=== PATIENT | female | born 1980 | race Caucasian/White ===

== ENCOUNTER 2016-05-05 20:41 | Emergency (ER) | payer SELFPAY ==
[2016-05-05] MEDS ORDERED: NS 0.9% 1000 ML* 1,000 ML IV ONE (21:17)
[2016-05-05 21:32] LABS: Hematocrit 41 % (35-47); Hemoglobin 13.9 g/dl (12.0-16.0); Mean Corpuscular HGB Conc 34 g/dl (31-36); Mean Corpuscular Hemoglobin 32 pg (27-31); Mean Corpuscular Volume 95 fL (80-97); Mean Platelet Volume 9 um3 (7.4-10.4); Red Blood Count 4.33 10^6/ul (4.0-5.4); Red Cell Distribution Width 13 % (10.5-15); White Blood Count 11.5 10^3/ul (3.5-10.8)
[2016-05-05 21:48] LABS: ALT 31 U/L (7-52); AST 19 U/L (13-39); Albumin 4.5 g/dL (3.2-5.2); Alkaline Phosphatase 68 U/L (34-104); Anion Gap 12 mmol/L (2-11); Blood Urea Nitrogen 10 mg/dL (6-24); CO2 Carbon Dioxide 21 mmol/L (22-32); Calcium 9.3 mg/dL (8.6-10.3); Chloride 104 mmol/L (101-111); EGFR Non-African American 48.2 (>60); Globulin 2.8 g/dL (2-4); Glucose 110 mg/dL (70-100); Sodium 137 mmol/L (133-145); Total Protein 7.3 g/dL (6.4-8.9)
--- NOTE | 2016-05-05 21:58 | ED ---
Kvng Velarde Janilya, scribed for Zac Geiger MD on 05/05/16 at 2122 . Substance Abuse/Use - HPI Summary HPI Summary: A 35 y/o female was brought to [facility] [place] presenting w/ intoxication. Per nurse, pt made a Facebook post with a suicide plan. She stated that she will hang herself. Police found the pt at home intoxicated. Pt states that she drank alcohol, but "it was not enough", and that she took an unknown amount of sleeping pills. She also reports having taken kava-kava. LEVEL 5 CAVEAT: INTOXICATED, ALT MENTAL STATUS - History Of Current Complaint Chief Complaint: EDSubstanceAbuse Stated Complaint: 941 Time Seen by Provider: 05/05/16 21:11 Hx Obtained From: Patient Ingestion History: Type/Name Of Drug - unknown, Amount Ingested - unknown Severity Initially: Moderate Severity Currently: Moderate Aggravating Factor(s): Nothing Alleviating Factor(s): Nothing Associated Signs And Symptoms: Altered Mental Status - Allergies/Home Medications Allergies/Adverse Reactions: Allergies Allergy/AdvReac Type Severity Reaction Status Date / Time No Known Allergies Allergy Verified 05/05/16 22:12 PMH/Surg Hx/FS Hx/Imm Hx Previously Healthy: Yes Infectious Disease History: No Infectious Disease History: Denies: Traveled Outside the [place] in Last 30 Days - Family History Known Family History: Positive: Unknown - FHx unable to obtain due to LEVEL 5 CAVEAT: INTOXICATED, ALT MENTAL ST - Social History Lives: Alone Hx Substance Use: Yes Review of Systems Negative: Fever Psychological: Other - INTOXICATED, ALT MENTAL STATUS All Other Systems Reviewed And Are Negative: Yes Physical Exam Triage Information Reviewed: Yes Vital Signs On Initial Exam: Initial Vitals Temp Pulse Resp BP Pulse Ox 99.0 F 175 20 129/72 99 05/05/16 21:02 05/05/16 21:02 05/05/16 21:02 05/05/16 21:02 05/05/16 21:02 Vital Signs Reviewed: Yes Appearance: Positive: Well-Appearing, No Pain Distress - aob Skin: Positive: Warm Head/Face: Positive: Normal Head/Face Inspection Eyes: Positive: FRANCISCO JAVIER ENT: Positive: Hearing grossly normal Neck: Positive: Supple Respiratory/Lung Sounds: Positive: Clear to Auscultation, Breath Sounds Present Cardiovascular: Positive: Normal Abdomen Description: Positive: Nontender, Soft Musculoskeletal: Positive: Strength/ROM Intact Neurological: Positive: Sensory/Motor Intact Diagnostics - Vital Signs Vital Signs Temp Pulse Resp BP Pulse Ox 05/05/16 21:02 99.0 F 175 20 129/72 99 - Laboratory Lab Results: Lab Results 05/05/16 05/05/16 05/05/16 Range/Units 21:15 21:15 21:15 WBC 11.5 H (3.5-10.8) 10^3/ul RBC 4.33 (4.0-5.4) 10^6/ul Hgb 13.9 (12.0-16.0) g/dl Hct 41 (35-47) % MCV 95 (80-97) fL MCH 32 H (27-31) pg MCHC 34 (31-36) g/dl RDW 13 (10.5-15) % Plt Count 229 (150-450) 10^3/ul MPV 9 (7.4-10.4) um3 Neut % (Auto) 49.8 (38-83) % Lymph % (Auto) 41.9 (25-47) % [place] % (Auto) 5.5 (1-9) % Eos % (Auto) 2.1 (0-6) % Baso % (Auto) 0.7 (0-2) % Absolute Neuts (auto) 5.7 (1.5-7.7) 10^3/ul Absolute Lymphs (auto) 4.8 (1.0-4.8) 10^3/ul Absolute Monos (auto) 0.6 (0-0.8) 10^3/ul Absolute Eos (auto) 0.2 (0-0.6) 10^3/ul Absolute Basos (auto) 0.1 (0-0.2) 10^3/ul Absolute Nucleated RBC 0.01 10^3/ul Nucleated RBC % 0.1 Sodium 137 (133-145) mmol/L Potassium 3.0 L (3.5-5.0) mmol/L Chloride 104 (101-111) mmol/L Carbon Dioxide 21 L (22-32) mmol/L Anion Gap 12 H (2-11) mmol/L BUN 10 (6-24) mg/dL Creatinine 1.25 H (0.51-0.95) mg/dL Est GFR ( Amer) 62.0 (>60) Est GFR (Non-Af Amer) 48.2 (>60) BUN/Creatinine Ratio 8.0 (8-20) Glucose 110 H (70-100) mg/dL Lactic Acid 3.7 H* (0.5-2.0) mmol/L Calcium 9.3 (8.6-10.3) mg/dL Total Bilirubin 0.30 (0.2-1.0) mg/dL AST 19 (13-39) U/L ALT 31 (7-52) U/L Alkaline Phosphatase 68 (34-104) U/L Total Protein 7.3 (6.4-8.9) g/dL Albumin 4.5 (3.2-5.2) g/dL Globulin 2.8 (2-4) g/dL Albumin/Globulin Ratio 1.6 (1-3) Salicylates Pending Acetaminophen Pending Serum Alcohol Pending Result Diagrams: 05/05/16 21:15 05/05/16 21:15 Lab Statement: Any lab studies that have been ordered have been reviewed, and results considered in the medical decision making process. - EKG 210 Cardiac Rate: Tachycardia - 153 bpm EKG Rhythm: Sinus Tachycardia ST Segment: Normal Ectopy: None Re-Evaluation - Re-Evaluation First Eval Change: Improved Course/Dx - Diagnoses Provider Diagnoses: Alcohol intoxication Discharge - Discharge Plan Condition: Improved Disposition: HOME Patient Education Materials: Depression (ED), Abuse of Alcohol (ED), Suicide Prevention for Adults (ED) Referrals: [facility] [Other] (Please consider getting treatment at [facility] for symptoms of depression and alcohol abuse.) [facility] [place] [Other] (Please consider [facility] [place] for alcohol abuse counseling.) No Primary Care Phys,NOPCP [Primary Care Provider] - The documentation as recorded by the Kvng vazquez Janilya accurately reflects the service I personally performed and the decisions made by me, Zac Geiger MD.
[2016-05-05 22:09] LABS: Acetaminophen < 15 mcg/mL; Alcohol 179 mg/dL (<10); Salicylate < 2.50 mg/dL (<30)
[2016-05-05 23:39] LABS: Urine Bacteria Absent (Absent); Urine Bilirubin Negative (Negative); Urine Glucose Negative (Negative); Urine Nitrite Negative (Negative)
[2016-05-06] MEDS ORDERED: NS 0.9% 1000 ML* 1,000 ML IV ONE (00:05)
[2016-05-06] MEDS ORDERED: IVPREMIX ONE (00:10)
[2016-05-06] MEDS ORDERED: KCL 10 MEQ/50 ML ONE (00:10)
[2016-05-06 00:12] LABS: Benzodiazepine Urine Screen None Detected (None Detect)
[2016-05-06] MEDS: KCL 10 MEQ/50 ML IVPREMIX* 10 MEQ/50 ML BAG IV SCH ×3 (00:14→02:22)
[2016-05-06] MEDS ORDERED: Metoprolol Tartrate IV* 1 MG/ML 5 ML VIAL IV ONE (00:31)
[2016-05-06] MEDS ORDERED: Ondansetron INJ* 2 MG/ML VIAL ONE (01:41)
[2016-05-06] MEDS ORDERED: Ondansetron INJ* 2 MG/ML VIAL IV ONE (01:46)
[2016-05-06 06:11] VITALS: BP 109/53
== END 2016-05-06 06:17 | disposition home or self-care (01) ==
LOC: ED 20:41
DX: F10.129 Alcohol abuse with intoxication, unspecified (principal); R41.82 Altered mental status, unspecified
CPT/HCPCS: 36415; 80053; 80307; 80320; 80329; 81003; 81015; 83605; 84702; 85025; 87086; 93005; 96365; 99285; G0480; J2405; J3480; J3490

== ENCOUNTER 2016-08-28 21:49 | Emergency (ER) | payer MEDICAID ==
[2016-08-28] MEDS ORDERED: Ketorolac INJ* 60 MG/2 ML VIAL IM ONE (23:54)
[2016-08-28] MEDS ORDERED: Ketorolac INJ* 30 MG/ML 1 ML VIAL IV PUSH ONE (23:56)
[2016-08-28] MEDS ORDERED: Dexamethasone IV* 4 MG/ML 1 ML (4 MG) IV SLOW PU ONE (23:56)
[2016-08-29 02:58] VITALS: BP 115/94
--- NOTE | 2016-08-29 07:40 | RAD ---
INDICATION: Fall. Head injury. COMPARISON: None TECHNIQUE: Noncontrast axial source images were acquired from the skull base to the vertex. FINDINGS: Ventricles/sulci: The ventricles and cisterns are normal in size and configuration for age. Brain parenchyma: There is no focal parenchymal finding, evidence of intracranial mass, or intracranial mass effect. Intracranial hemorrhage:None. Extra-axial spaces: There are no abnormal extra axial fluid collections or evidence of extra-axial mass. Calvarium: There is no calvarial fracture or other calvarial abnormality. Scalp: There is no evidence of scalp or extracalvarial soft tissue abnormality. Paranasal sinuses/mastoid: The paranasal sinuses and mastoid air cells are clear. Other: There is left for orbital floor fracture. Please refer to separate maxillofacial CT report. IMPRESSION: No acute intracranial findings. Left orbital floor fracture described in separate report.
--- NOTE | 2016-08-29 07:54 | RAD ---
INDICATION: Fall. Neck pain. COMPARISON: None TECHNIQUE: Noncontrast axial source images was performed from the skull base to the thoracic inlet. Coronal and and sagittal reformatted images were generated. FINDINGS: Vertebrae: There is no fracture or acute focal bony lesion. Alignment: The craniocervical junction appears normal. The cervical vertebrae are normally aligned. Central Canal: There is mild posterior spondylitic ridge reformation C5-C6 with uncinate process spurring leading to a mild decrease in AP diameter canal. There is no significant foraminal encroachment. There are no other significant CT abnormalities of the central canal or foramina. MR imaging is a more sensitive method to evaluate the canal and foramina. Intervertebral disc spaces: Minor disc space narrowing C5-C6. The remaining disc spaces are maintained. Brain: The visualized brain appears unremarkable. Soft tissues: The visualized soft tissue elements of the neck are unremarkable. The prevertebral soft tissues appear normal. The lung apices are clear. IMPRESSION: MINOR DEGENERATIVE CHANGES C5-C6. NO ACUTE FINDINGS
--- NOTE | 2016-08-29 08:01 | RAD ---
HISTORY: Fall, possible left orbital fracture COMPARISONS: None TECHNIQUE: Multiple contiguous axial CT scans were obtained of the face without intravenous contrast, with coronal and sagittal multiplanar reformations. FINDINGS: BONES: There is a fracture of the inferior orbital wall with approximately 0.7 cm of inferior displacement. The fracture defect measures approximately 1.1 cm transversely and 1.5 cm in AP dimension. There is partial herniation of the inferior rectus muscle. There is a nondisplaced fracture of the left nasal bone. There is a questionable fracture of the right inferior wall without herniation of fat, though this may simply represent a prominent inferior orbital foramen. Elsewhere, there is no displaced fracture. Mild degenerative changes are noted of the cervical spine ORBITS: As noted above, there is left inferior orbital wall fracture with partial herniation of the inferior rectus muscle. The globes are round. The optic nerves are symmetric. The extraocular musculature is otherwise normal. There is no post septal or intraconal inflammatory change. There is no retrobulbar hematoma. PARANASAL SINUSES: The paranasal sinuses are clear. BRAIN AND SOFT TISSUE: Unremarkable. OTHER: None. IMPRESSION: 1. DISPLACED LEFT INFERIOR ORBITAL WALL FRACTURE WITH PARTIAL HERNIATION OF THE LEFT INFERIOR RECTUS MUSCLE. 2. NONDISPLACED LEFT NASAL BONE FRACTURE. 3. QUESTIONABLE RIGHT INFERIOR ORBITAL WALL FRACTURE
--- NOTE | 2016-09-13 12:50 | ED ---
Head Injury - History Of Current Complaint Chief Complaint: EDHeadInjury Stated Complaint: HEAD AND NECK PAIN Time Seen by Provider: 08/28/16 22:25 Pain Intensity: 3 Pain Scale Used: 0-10 Numeric - Allergies/Home Medications Allergies/Adverse Reactions: Allergies Allergy/AdvReac Type Severity Reaction Status Date / Time No Known Allergies Allergy Verified 08/28/16 22:01 PMH/Surg Hx/FS Hx/Imm Hx Endocrine/Hematology History: Denies: Hx Anticoagulant Therapy Psychiatric History: Denies: Hx Eating Disorder Infectious Disease History: No Infectious Disease History: Denies: Traveled Outside the [place] in Last 30 Days - Family History Known Family History: Positive: Unknown - FHx unable to obtain due to LEVEL 5 CAVEAT: INTOXICATED, ALT MENTAL ST - Social History Alcohol Use: Occasionally Hx Substance Use: Yes Substance Use Type: Reports: Sedatives Smoking Status (MU): Former Smoker Physical Exam Vital Signs On Initial Exam: Initial Vitals Temp Pulse Resp BP Pulse Ox 98.7 F 98 18 137/84 100 08/28/16 21:58 08/28/16 21:58 08/28/16 21:58 08/28/16 21:58 08/28/16 21:58 - [place] Coma Scale Coma Scale Total: 15 Diagnostics - Vital Signs Vital Signs Temp Pulse Resp BP Pulse Ox 08/29/16 02:57 98.5 F 72 16 115/94 08/28/16 21:58 98.7 F 98 18 137/84 100 - Laboratory Lab Statement: Any lab studies that have been ordered have been reviewed, and results considered in the medical decision making process. Discharge - Discharge Plan Condition: Stable Disposition: HOME Referrals: No Primary Care Phys,NOPCP [Primary Care Provider] -
== END 2016-08-29 02:32 | disposition home or self-care (01) ==
LOC: ED 21:49
DX: S02.82XA Fracture of other specified skull and facial bones, left side, initial encounter for closed fracture (principal); S02.2XXA Fracture of nasal bones, initial encounter for closed fracture; W19.XXXA Unspecified fall, initial encounter; Y92.9 Unspecified place or not applicable; Z87.891 Personal history of nicotine dependence
CPT/HCPCS: 70450; 70486; 72125; 96372; 96374; 96375; 99282; J1100; J1885

== ENCOUNTER 2017-06-24 12:59 | Emergency (ER) | payer MEDICAID, OTHER ==
[2017-06-24 13:03] VITALS: BP 121/72
== END 2017-06-24 14:37 | disposition left against medical advice (07) ==
LOC: ED 12:59
DX: R10.9 Unspecified abdominal pain (principal); Z53.21 Procedure and treatment not carried out due to patient leaving prior to being seen by health care provider

== ENCOUNTER 2019-10-10 01:59 | Inpatient (IN) ==
[2019-10-10 02:44] LABS: Urine Appearance Clear; Urine Bilirubin Negative (Negative); Urine Blood Negative (Negative); Urine Color Straw; Urine Glucose Negative (Negative); Urine Ketones Negative (Negative); Urine Nitrite Negative (Negative); Urine Protein Negative (Negative); Urine Specific Gravity 1.003 (1.010-1.030); Urine Urobilinogen Negative (Negative)
[2019-10-10 03:00] LABS: Urine Benzodiazepine Screen None Detected (None Detect); Urine Opiates Screen None Detected (None Detect)
[2019-10-10 03:20] LABS: ABS Basophils 0.1 10^3/ul (0-0.2); ABS Eosinophils 0.3 10^3/ul (0-0.6); ABS Lymphocytes 2.6 10^3/ul (1.0-4.8); ABS Monocytes 0.3 10^3/ul (0-0.8); Eosinophil % 4.8 %; Hematocrit 39 % (35-47); Hemoglobin 13.5 g/dL (12.0-16.0); Lymphocyte % 38.9 %; Mean Corpuscular HGB Conc 35 g/dL (31-36); Mean Corpuscular Hemoglobin 34 pg (27-31); Mean Corpuscular Volume 98 fL (80-97); Mean Platelet Volume 9.2 fL (7.4-10.4); Nucleated Red Blood Cells % 0.1; Platelet Count 192 10^3/uL (150-450); Red Blood Count 3.96 10^6 /uL (3.70-4.87); Red Cell Distribution Width 14 % (10-15); White Blood Count 6.6 10^3/uL (3.5-10.8)
[2019-10-10 03:35] LABS: ALT 23 U/L (7-52); AST 21 U/L (13-39); Albumin 4.3 g/dL (3.2-5.2); Albumin/Globulin Ratio 1.6 (1-3); Alkaline Phosphatase 70 U/L (34-104); Anion Gap 9 mmol/L (2-11); BUN/Creatinine Ratio 17.5 (8-20); Blood Urea Nitrogen 10 mg/dL (6-24); CO2 Carbon Dioxide 21 mmol/L (22-32); Chloride 109 mmol/L (101-111); EGFR African American 142.1 (>60); EGFR Non-African American 117.5 (>60); Globulin 2.7 g/dL (2-4); Glucose 105 mg/dL (70-100); Potassium 3.8 mmol/L (3.5-5.0); Sodium 139 mmol/L (135-145)
[2019-10-10 03:41] LABS: HCG Pregnancy < 0.60 mIU/mL
[2019-10-10 03:55] LABS: Acetaminophen < 15 mcg/mL; Alcohol, S 265 mg/dL (<10); Salicylate < 2.50 mg/dL (<30)
[2019-10-10 04:09] LABS: TSH (Thyroid Stimulating Horm) 1.82 mcIU/mL (0.34-5.60)
[2019-10-10] MEDS ORDERED: Nicotine PATCH 21 MG/24 HR PATCH TRANSDERM ONE (05:54)
[2019-10-10] MEDS ORDERED: OXcarbazepine 300 mg TAB (*) PO ONE (15:26)
[2019-10-10] MEDS ORDERED: Venlafaxine 75 mg CAP (NF) PO ONE (15:26)
[2019-10-10] MEDS ORDERED: LORazepam 1 mg TAB (*) PO SCH (16:00)
[2019-10-10] MEDS: Multivitamins/Minerals TAB PO SCH (17:48)
[2019-10-10] MEDS ORDERED: Venlafaxine XR 75 mg PO ONE (17:58)
[2019-10-11] MEDS ORDERED: OXcarbazepine 300 mg TAB (*) PO ONE (07:24)
[2019-10-11 11:16] LABS: Cholesterol 173 mg/dL; HDL Cholesterol 84.4 mg/dL; LDL Cholesterol 70 mg/dL; Triglycerides 94 mg/dL
[2019-10-11] MEDS ORDERED: Al Hydrox/Mg Hydrox/Simet LIQ 30 ML UDC PO PRN (22:18)
[2019-10-12] MEDS: Multivitamins/Minerals TAB PO SCH (00:28)
[2019-10-12] MEDS: Nicotine PATCH 21 MG/24 HR PATCH TRANSDERM SCH (09:01)
[2019-10-12] MEDS: Vitamin THERAPEUTIC TAB PO SCH (09:01)
[2019-10-13] MEDS: Nicotine GUM 2MG FRUIT FLAVOR PO PRN (07:40)
[2019-10-13] MEDS: Vitamin THERAPEUTIC TAB PO SCH (07:40)
[2019-10-13] MEDS: Venlafaxine XR 75 mg PO SCH (07:40)
[2019-10-13] MEDS: Nicotine PATCH 21 MG/24 HR PATCH TRANSDERM SCH (08:55)
[2019-10-13] MEDS: lamoTRIgine 25 mg TAB (*) PO SCH (16:59)
[2019-10-14] MEDS: Nicotine GUM 2MG FRUIT FLAVOR PO PRN (06:32)
[2019-10-14] MEDS: Nicotine PATCH 21 MG/24 HR PATCH TRANSDERM SCH (09:10)
[2019-10-14] MEDS: Vitamin THERAPEUTIC TAB PO SCH (09:10)
[2019-10-14] MEDS: lamoTRIgine 25 mg TAB (*) PO SCH (09:10)
[2019-10-14] MEDS: Venlafaxine XR 75 mg PO SCH (09:10)
[2019-10-14 09:39] VITALS: BP 123/77
== END 2019-10-14 11:30 | disposition home or self-care (01) | DRG 753 ==
LOC: ED 01:59 → BSU 10-11 19:55
PROVIDERS: ADMIT Psychiatry & Neurology Psychiatry; ATTEND Psychiatry & Neurology Psychiatry